=== PATIENT | male | born 2000 | race Two or more races ===

== ENCOUNTER 2021-11-30 14:30 | Emergency (ER) | payer SELFPAY ==
[~2021-11-30] VITALS: Ht 154.9 cm; Wt 65.8 kg
[2021-11-30 14:34] VITALS: BP 150/88
[2021-11-30] MEDS ORDERED: IBUP800T27 PO (18:24)
[2021-11-30] MEDS ORDERED: CYCL-837 PO (18:24)
== END 2021-11-30 18:46 | disposition home or self-care (01) ==
LOC: ER 14:30
DX: S93.401A Sprain of unspecified ligament of right ankle, initial encounter (principal); S46.912A Strain of unspecified muscle, fascia and tendon at shoulder and upper arm level, left arm, initial encounter; V23.4XXA Motorcycle driver injured in collision with car, pick-up truck or van in traffic accident, initial encounter; Y93.89 Activity, other specified; Y92.410 Unspecified street and highway as the place of occurrence of the external cause; Y99.9 Unspecified external cause status
CPT/HCPCS: 73030; 73600

== ENCOUNTER 2022-01-29 00:41 | Inpatient (IN) | payer BC ==
[~2022-01-29] VITALS: Ht 154.9 cm; Wt 73.9 kg
[~2022-01-29 00:41] MED LIST: CYCL-837 PO; IBUP800T27 PO
[2022-01-29 01:55] LABS: Basophils # (auto) 0.1 10 ^3/uL (0-0.2); Basophils % (auto) 0.5 % (0.0-2.0); Eosinophils # (auto) 0 10 ^3/uL (0-0.8); Hematocrit 37.9 % (41.0-53.0); Hemoglobin 13.2 g/dL (13.5-17.5); Lymphocytes # (auto) 1.1 10 ^3/uL (0.4-5.4); Lymphocytes % (auto) 5.5 % (10.0-50.0); Mean Corpuscular Hgb Conc. 34.9 g/dL (32.0-36.0); Monocytes # (auto) 1.6 10 ^3/uL (0-1.3); Monocytes % (auto) 7.9 % (0.0-12.0); Neutrophils # (auto) 17.2 10 ^3/uL (1.6-8.6); Neutrophils % (auto) 86.1 % (37.0-80.0); Red Blood Cells 4.41 10^6/uL (4.5-5.90); Red Cell Distribution Width 13.5 % (11.8-14.3)
[2022-01-29 02:12] LABS: Albumin 3.5 g/dL (3.4-5.0); Calcium 8.3 mg/dL (8.5-10.1); Potassium 3.8 mmol/L (3.5-5.1)
[2022-01-29 02:13] LABS: BUN/Creatinine Ratio 8.8
[2022-01-29 02:16] LABS: Bilirubin, Total 0.9 mg/dL (0.2-1.0); Total Protein 7.6 g/dL (6.4-8.2)
[2022-01-29 02:29] LABS: Urine Bacteria MANY /hpf (None Seen); Urine Blood 2+ /uL (Negative); Urine Specific Gravity 1.008 (1.001-1.035); Urine WBC 166 /hpf (0 - 3); Urine WBC Clumps PRESENT /hpf (None Seen)
[2022-01-29] MEDS ORDERED: AZITHROMYCIN 500MG/ 250ML 250 ML IV ONE (06:00)
[2022-01-29] MEDS ORDERED: cefTRIAXone 1GM/50ML D5W 50 ML IV ONE (06:00)
[2022-01-29] MEDS ORDERED: SODIUM CHLORIDE 0.9% 1,000 ML IV ONE (06:00)
[2022-01-29] MEDS ORDERED: TEMAZEPAM 15 MG CAP PO PRN (07:00)
[2022-01-29] MEDS ORDERED: ALBUTEROL SULF 2.5 MG/0.5ML(0.5%) NEB SOLN NEB PRN (07:00)
[2022-01-29] MEDS ORDERED: MORPHINE SULFATE INJ 2 MG/ml SYRG IV PRN (07:00)
[2022-01-29] MEDS ORDERED: NITROGLYCERIN 0.4 MG SL TAB SL PRN (07:00)
[2022-01-29] MEDS ORDERED: ONDANSETRON HCL 4 MG/2 ML VIAL IV PRN (07:00)
[2022-01-29] MEDS: SODIUM CHLORIDE 0.9% 1,000 ML IV SCH ×2 (08:24→18:07)
[2022-01-29 10:02] VITALS: BP 98/65
[2022-01-29 13:00] VITALS: BP 116/55
[2022-01-29 13:27] VITALS: BP 118/72
[2022-01-29] MEDS: ACETAMINOPHEN 325 MG TAB PO PRN ×2 (14:30→21:48)
[2022-01-29 17:00] VITALS: BP 118/72
[2022-01-29] MEDS ORDERED: ISOT30CA PO (19:03)
[2022-01-29 22:00] VITALS: BP 118/75
[2022-01-30] MEDS: SODIUM CHLORIDE 0.9% 1,000 ML IV SCH ×2 (05:05→16:28)
[2022-01-30 05:51] VITALS: BP 103/70
[2022-01-30 06:27] LABS: Basophils # (auto) 0 10 ^3/uL (0-0.2); Basophils % (auto) 0.3 % (0.0-2.0); Eosinophils # (auto) 0 10 ^3/uL (0-0.8); Eosinophils % (auto) 0.2 % (0.0-7.0); Hemoglobin 13.1 g/dL (13.5-17.5); Lymphocytes % (auto) 9.9 % (10.0-50.0); Mean Corpuscular Hemoglobin 30.9 pg (28.0-32.0); Mean Corpuscular Hgb Conc. 35.5 g/dL (32.0-36.0); Mean Corpuscular Volume 86.8 fL (80.0-100.0); Monocytes # (auto) 0.9 10 ^3/uL (0-1.3); Monocytes % (auto) 9.5 % (0.0-12.0); Neutrophils % (auto) 80.1 % (37.0-80.0); Red Blood Cells 4.26 10^6/uL (4.5-5.90); Red Cell Distribution Width 13.7 % (11.8-14.3); White Blood Cell 9.9 10^3/uL (4.4-10.8)
[2022-01-30 06:44] LABS: Albumin 2.7 g/dL (3.4-5.0); BUN/Creatinine Ratio 6.2; Calcium 8.1 mg/dL (8.5-10.1); Potassium 4.1 mmol/L (3.5-5.1)
[2022-01-30 06:47] LABS: Bilirubin, Total 0.5 mg/dL (0.2-1.0); Total Protein 6.7 g/dL (6.4-8.2)
[2022-01-30] MEDS: cefTRIAXone 1GM/50ML D5W 50 ML IV SCH (08:11)
[2022-01-30] MEDS: AZITHROMYCIN 500MG/ 250ML 250 ML IV SCH (08:11)
[2022-01-30] MEDS: ACETAMINOPHEN 325 MG TAB PO PRN ×2 (08:11→16:28)
[2022-01-30 09:18] VITALS: BP 117/77
[2022-01-30 13:00] VITALS: BP 106/63
[2022-01-30 16:22] VITALS: BP 147/97
[2022-01-30 22:00] VITALS: BP 118/71
[2022-01-31] MEDS: SODIUM CHLORIDE 0.9% 1,000 ML IV SCH ×2 (04:25→15:00)
[2022-01-31] MEDS: ACETAMINOPHEN 325 MG TAB PO PRN (04:25)
[2022-01-31 05:00] VITALS: BP 128/82
[2022-01-31 08:20] VITALS: BP 115/78
[2022-01-31] MEDS: cefTRIAXone 1GM/50ML D5W 50 ML IV SCH (09:35)
[2022-01-31] MEDS: AZITHROMYCIN 500MG/ 250ML 250 ML IV SCH (10:30)
[2022-01-31 13:00] VITALS: BP 111/71
[2022-01-31 17:15] VITALS: BP 112/70
[2022-01-31 22:00] VITALS: BP 125/81
[2022-02-01] MEDS: SODIUM CHLORIDE 0.9% 1,000 ML IV SCH (02:05)
[2022-02-01 05:00] VITALS: BP 117/74
[2022-02-01] MEDS ORDERED: LEVO500T31 PO (07:55)
[2022-02-01 08:00] VITALS: BP 125/88
[2022-02-01] MEDS: cefTRIAXone 1GM/50ML D5W 50 ML IV SCH (08:37)
[2022-02-01 09:00] VITALS: BP 125/88
[2022-02-01] MEDS: AZITHROMYCIN 500MG/ 250ML 250 ML IV SCH (10:13)
[2022-02-01 10:56] VITALS: BP 125/88
[2022-02-01 11:23] VITALS: BP 125/88
== END 2022-02-01 13:20 | disposition home or self-care (01) | DRG 871 ==
LOC: ER 00:41 → TELE 06:52 → TELE-CENTR 13:26
PROVIDERS: ADMIT Nurse Practitioner; ATTEND Family Medicine
DX: A41.51 Sepsis due to Escherichia coli [E. coli] (principal); J69.0 Pneumonitis due to inhalation of food and vomit; N39.0 Urinary tract infection, site not specified; E86.0 Dehydration; Z20.822 Contact with and (suspected) exposure to COVID-19; Z90.13 Acquired absence of bilateral breasts and nipples
CPT/HCPCS: 36415; 71045; 74176; 80053; 81001; 82728; 83605; 85025; 87040; 87086; 87088; 87186; 87804; 94640; 96365; 96368; G0378; J0696